=== PATIENT | female | born 1940 | race Caucasian/White ===

== ENCOUNTER 2017-07-08 07:06 | Inpatient (IN) | payer OTHER ==
[2017-07-08] MEDS ORDERED: METOCLOPRAMIDE HCL INJECTION 10 MG/2 ML VIAL IVPUSH ONE (07:49)
[2017-07-08] MEDS ORDERED: METOCLOPRAMIDE HCL INJECTION 10 MG/2 ML VIAL ONE (07:53)
--- NOTE | 2017-07-08 08:31 | PDOC ---
History of Present Illness - General Chief Complaint: Lightheaded Stated Complaint: vertigo /DIZZINESS Time Seen by Provider: 07/08/17 07:23 History Source: Patient Exam Limitations: No Limitations - History of Present Illness Initial Comments: 07/08/17 08:31 The patient is a 76-year-old female past medical history of hypertension, hyperlipidemia, prediabetes, coronary artery disease status post stents, back pain who presents to the emergency department today complaining of dizziness, vertigo and nausea for 8 days. Patient states that she usually has vertigo attacks she regularly takes meclizine for; however, she states that this has been the longest period of vertigo that she's ever had. She states that the room is spinning and is worse when she goes from a lying down to upright position. She states that she notices symptoms when she turns her head to the right. She also endorses headache, weakness, lethargy, nausea, cough and anorexia. She states that she hasn't overall been feeling well. Denies chest pain, palpitations edema, chest tightness, syncope, shortness of breath, diarrhea, vomiting, constipation, frequency, urgency and hematuria. Past History - Travel Traveled outside of the country in the last 30 days: No Close contact w/someone who was outside of country & ill: No - Past Medical History Allergies/Adverse Reactions: Allergies Allergy/AdvReac Type Severity Reaction Status Date / Time codeine [Codeine] Allergy Verified 07/08/17 07:11 Penicillins Allergy Verified 07/08/17 07:11 Anemia: No Asthma: No Cancer: No Cardiac Disorders: Yes (CORONARY ARTERY DISEASE) CVA: No COPD: No CHF: No Dementia: No Diabetes: No GI Disorders: Yes (NAUSEA,VOMITING,HX.COLON POLYP) Disorders: No HTN: Yes Hypercholesterolemia: Yes Liver Disease: No Seizures: No Thyroid Disease: No Other medical history: vertigo, arithritis - Surgical History Abdominal Surgery: No Appendectomy: Yes Cardiac Surgery: Yes (CARDIAC STENTS X2) Cholecystectomy: Yes Lung Surgery: No Neurologic Surgery: Yes (REMOVAL BLOOD CLOT) Orthopedic Surgery: No - Psycho/Social/Smoking Cessation Hx Anxiety: No Suicidal Ideation: No Smoking History: Never smoked Have you smoked in the past 12 months: No Information on smoking cessation initiated: No Hx Alcohol Use: No Drug/Substance Use Hx: No Substance Use Type: None Hx Substance Use Treatment: No Review of Systems - Review of Systems Able to Perform ROS?: Yes Is the patient limited Lithuanian proficient: No Constitutional: Yes: Loss of Appetite, Weakness. No: Chills, Fever, Malaise HEENTM: No: Ear Discharge, Tinnitus, Hearing Loss Respiratory: Yes: Cough. No: Shortness of Breath, Wheezing Cardiac (ROS): Yes: Lightheadedness. No: Chest Pain, Edema, Palpitations, Syncope, Chest Tightness ABD/GI: Yes: Nausea. No: Constipated, Vomiting Neurological: Yes: Weakness, Dizziness. No: Numbness, Paresthesia All Other Systems: Reviewed and Negative *Physical Exam - Vital Signs Last Vital Signs Temp Pulse Resp BP Pulse Ox 97.6 F 78 18 161/80 97 07/08/17 07:11 07/08/17 07:11 07/08/17 07:11 07/08/17 07:11 07/08/17 07:11 - Physical Exam Comments: 07/08/17 08:37 GENERAL: Well developed, well nourished. Awake and alert. No acute distress. HEENT: Normocephalic, atraumatic. PERRLA, EOMI. No nystagmus one sophia's maneuver. No conjunctival pallor. Sclera are non-icteric. Moist mucous membranes. Oropharynx is clear. NECK: Supple. Full ROM. No JVD. Carotid pulses 2+ and symmetric, without bruits. No thyromegaly. No lymphadenopathy. CARDIOVASCULAR: Regular rate and rhythm. No murmurs, rubs, or gallops. Distal pulses are 2+ and symmetric. PULMONARY: No evidence of respiratory distress. Lungs clear to auscultation bilaterally. No wheezing, rales or rhonchi. ABDOMINAL: Soft. Non-tender. Non-distended. No rebound or guarding. No organomegaly. Normoactive bowel sounds. MUSCULOSKELETAL Normal range of motion at all joints. No bony deformities or tenderness. No CVA tenderness. EXTREMITIES: No cyanosis. No clubbing. No edema. No calf tenderness. SKIN: Warm and dry. Normal capillary refill. No rashes. No jaundice. NEUROLOGICAL: Alert, awake, appropriate. Cranial nerves 2-12 intact. No deficits to light touch and temperature in face, upper extremities and lower extremities. No dysmetreia, dysarthrea, dyskinokineses. No motor deficits in the in face, upper extremities and lower extremities. Normoreflexic in the upper and lower extremities. Normal speech. Toes are down-going bilaterally. Gait is normal without ataxia. PSYCHIATRIC: Cooperative. Good eye contact. Appropriate mood and affect. ED Treatment Course - LABORATORY CBC & Chemistry Diagram: 07/08/17 10:20 07/08/17 08:20 Medical Decision Making - Medical Decision Making 07/08/17 08:39 The patient is a 76-year-old female past medical history of hypertension, hyperlipidemia, prediabetes, coronary artery disease status post stents, back pain who presents to the emergency department today complaining of dizziness, vertigo and nausea for 8 days. There are no neurological deficits, no dismetria , disarthria, dyskinokinesis. BP mildly above goal at 160/80, afebrile. Differential diagnosis include but are not limited to central vertigo, BPPV, infection, less likely brainstem stroke, ACS 1.CBC, CMP, PT/INR, cardiac labs, UA, UC 2.EKG, chest x-ray, head CT 3.Reglan and Benadryl 4.Re-evaluate 07/08/17 10:35 CT scan impression: Intervals status post right posterior parietal/occipital craniotomy Mild to moderate volume loss, ventricular dilation and chronic microvascular ischemic changes. No gross intracranial pathology is identified. Lab work shows a trop of 0.06. Other lab work hemolized. 2nd trop ordered for 13 :30 07/08/17 12:11 Urine shows positive Leuks and blood. CBC is unremarkable. pt. states that she feels slightly better after reglan. Will try ativan now. Sending pt. for MRI brain, MRA brain and MRA neck to look for posterior circulation stroke. Will place referral for Dr. Kelly. PCP is Dr. Javier Fields, who admits to [facility]. Will place request. *DC/Admit/Observation/Transfer Diagnosis at time of Disposition: Inability to walk, Vertigo, Dizziness UTI (urinary tract infection) Qualifiers: Urinary tract infection type: site unspecified Hematuria presence: with hematuria Qualified Code(s): N39.0 - Urinary tract infection, site not specified - Discharge Dispostion Condition at time of disposition: Stable Admit: Yes
[2017-07-08 08:53] LABS: ALBUMIN 3.1 g/dl (3.4-5.0); ANION GAP 5 (8-16); BILIRUBIN,TOTAL 0.6 mg/dL (0.2-1.0); CALCIUM 9.4 mg/dL (8.5-10.1); CO2 30 mmol/L (21-32); CREATININE 1.1 mg/dL (0.55-1.02); GLUCOSE,RANDOM 117 mg/dL (74-106); SGPT/ALT 18 U/L (12-78); TOT PROT 7.7 g/dl (6.4-8.2)
[2017-07-08 08:54] LABS: ALK PHOS 91 U/L (45-117)
[2017-07-08 08:55] LABS: SGOT/AST 23 U/L (15-37)
[2017-07-08 08:59] LABS: INR 1.08 (0.82-1.09); PROTHROMBIN TIME (PATIENT) 11.9 SEC (9.98-11.88)
[2017-07-08 09:08] LABS: URINE APPEARANCE SLCLOUDY; URINE BILIRUBIN NEGATIVE (NEGATIVE); URINE BLOOD 1+ (NEGATIVE); URINE COLOR YELLOW; URINE GLUCOSE (UA) NEGATIVE (NEGATIVE); URINE KETONE NEGATIVE (NEGATIVE); URINE NITRITE NEGATIVE (NEGATIVE); URINE PROTEIN NEGATIVE (NEGATIVE); URINE UROBILINOGEN NEGATIVE mg/dL (0.2-1.0)
[2017-07-08 09:26] LABS: URINE LEUK ESTERASE 3+ (NEGATIVE)
[2017-07-08 09:27] LABS: CPK 80 IU/L (26-192); TROPONIN I 0.06 ng/ml (0.00-0.05)
[2017-07-08 09:29] LABS: URINE HYALINE CAST 5 /lpf; URINE MUCUS FEW; URINE RBC 2 /hpf (0-3); URINE WBC 45 /hpf (3-5)
[2017-07-08 10:36] LABS: BASOPHIL 0.6 % (0-2.0); MCH 27.5 pg (25.7-33.7); MCHC 32.7 g/dl (32.0-36.0); MEAN CELL VOLUME 84.2 fl (80-96); MEAN PLT VOLUME 8.3 fl (7.5-11.1); NEUTROPHILS 61.4 % (42.8-82.8); PLATELET COUNT 276 K/MM3 (134-434); RDW 15.3 % (11.6-15.6); WHITE BLOOD COUNT 9.5 K/mm3 (4.0-10.0)
[2017-07-08] MEDS ORDERED: ASPIRIN 81 MG CHEWABLE TABLETS PO ONE ×2 (10:45→11:19)
[2017-07-08 11:04] LABS: TROPONIN I 0.07 ng/ml (0.00-0.05)
--- NOTE | 2017-07-08 11:14 | PDOC ---
*Physical Exam - Vital Signs Last Vital Signs Temp Pulse Resp BP Pulse Ox 97.6 F 78 18 161/80 97 07/08/17 07:11 07/08/17 07:11 07/08/17 07:11 07/08/17 07:11 07/08/17 07:11 ED Treatment Course - LABORATORY CBC & Chemistry Diagram: 07/09/17 05:35 07/09/17 05:35 - ADDITIONAL ORDERS Additional order review: Laboratory Results 07/08/17 07/08/17 07/08/17 08:55 08:20 08:20 INR Sodium 139 Potassium 4.8 Chloride 104 Carbon Dioxide 30 Anion Gap 5 L BUN 16 Creatinine 1.1 H D Creat Clearance w eGFR 48.04 Random Glucose 117 H Calcium 9.4 Total Bilirubin 0.6 D AST 23 D ALT 18 Alkaline Phosphatase 91 Creatine Kinase Cancelled 80 Troponin I Cancelled 0.06 H Total Protein 7.7 Albumin 3.1 L Urine Color Yellow Urine Appearance Slcloudy Urine pH 5.0 Urine Protein Negative Urine Glucose (UA) Negative Urine Ketones Negative Urine Blood 1+ H Urine Nitrite Negative Urine Bilirubin Negative Urine Urobilinogen Negative Ur Leukocyte Esterase 3+ H D Urine RBC 2 Urine WBC 45 Ur Epithelial Cells Few Hyaline Casts 5 Urine Mucus Few 07/08/17 08:20 INR 1.08 Sodium Potassium Chloride Carbon Dioxide Anion Gap BUN Creatinine Creat Clearance w eGFR Random Glucose Calcium Total Bilirubin AST ALT Alkaline Phosphatase Creatine Kinase Troponin I Total Protein Albumin Urine Color Urine Appearance Urine pH Urine Protein Urine Glucose (UA) Urine Ketones Urine Blood Urine Nitrite Urine Bilirubin Urine Urobilinogen Ur Leukocyte Esterase Urine RBC Urine WBC Ur Epithelial Cells Hyaline Casts Urine Mucus 07/08/17 07/08/17 10:20 08:20 RBC 4.71 Cancelled MCV 84.2 Cancelled MCHC 32.7 Cancelled RDW 15.3 D Cancelled MPV 8.3 Cancelled Neutrophils % 61.4 Cancelled Lymphocytes % 26.9 Cancelled Monocytes % 7.1 Cancelled Eosinophils % 4.0 Cancelled Basophils % 0.6 Cancelled - Medications Given in the ED: ED Medications Discontinued Medications Generic Name Dose Route Start Last Admin Trade Name Freq PRN Reason Stop Dose Admin Diphenhydramine HCl 12.5 mg 07/08/17 07:53 07/08/17 09:46 Benadryl Injection - IVPUSH 07/08/17 07:54 12.5 mg ONCE ONE Administration Metoclopramide HCl 10 mg 07/08/17 07:49 07/08/17 08:00 Reglan Injection - IVPUSH 07/08/17 07:50 10 mg ONCE ONE Administration Medical Decision Making - Medical Decision Making 07/08/17 11:12 I have seen and examined this patient with JIM Whiting. I agree with her history , assessment and plan *DC/Admit/Observation/Transfer Diagnosis at time of Disposition: Inability to walk, Vertigo, Dizziness UTI (urinary tract infection) Qualifiers: Urinary tract infection type: site unspecified Hematuria presence: with hematuria Qualified Code(s): N39.0 - Urinary tract infection, site not specified - Discharge Dispostion Disposition: HOME Condition at time of disposition: Stable - Prescriptions - Attestations Physician Attestion: 07/09/17 20:53 I, Dr. Albert Carrington MD, attest that this document has been prepared under my direction and personally reviewed by me in its entirety. I further attest, that it accurately reflects all work, treatment, procedures and medical decision -making performed by me.
[2017-07-08] MEDS ORDERED: ASPIRIN 81 MG CHEWABLE TABLETS ONE (11:37)
--- NOTE | 2017-07-08 14:05 | CONSULT ---
Consult - text type - Consultation Consultation Note: Neurology History of Present Illness The patient is a 76-year-old female past medical history of hypertension, hyperlipidemia, prediabetes, coronary artery disease status post stents, back pain who presents to the emergency department today complaining of dizziness, vertigo and nausea for 8 days without significant relief. Patient states that she usually has vertigo attacks she regularly takes meclizine for; however, she states that this has been the longest period of vertigo that she's ever had. She states that the room is spinning and is worse when she goes from a lying down to upright position. She states that she notices symptoms when she turns her head to the right. She also endorses headache, weakness, lethargy, nausea, cough and anorexia. She states that she hasn't overall been feeling well. She completed CT head in the ER and was negative. The patient was not able to ambulate and was ataxic trying to get out of bed. She was given Meclezine as well as low dose Ativan 0.5mg with minimal relief. Denies chest pain, palpitations edema, chest tightness, syncope, shortness of breath, diarrhea, vomiting, constipation, frequency, urgency and hematuria. Home Medication List Medication Instructions Recorded Confirmed Type Atorvastatin Ca [Lipitor] 40 mg PO HS 07/08/17 07/08/17 History Losartan Potassium [Cozaar -] 50 mg PO DAILY 07/08/17 07/08/17 History Metoprolol Succinate [Toprol Xl] 50 mg PO DAILY 07/08/17 07/08/17 History Omeprazole 40 mg PO ASDIR 07/08/17 07/08/17 History Prednisone [Deltasone -] 1 mg PO DAILY 07/08/17 07/08/17 History Risedronate Sodium [Actonel 150 mg PO Q30D 07/08/17 07/08/17 History (Monthly)] Past History - Travel Traveled outside of the country in the last 30 days: No Close contact w/someone who was outside of country & ill: No - Past Medical History Allergies/Adverse Reactions: Allergies Allergy/AdvReac Type Severity Reaction Status Date / Time codeine [Codeine] Allergy Verified 07/08/17 07:11 Penicillins Allergy Verified 07/08/17 07:11 Anemia: No Asthma: No Cancer: No Cardiac Disorders: Yes (CORONARY ARTERY DISEASE) CVA: No COPD: No CHF: No Dementia: No Diabetes: No GI Disorders: Yes (NAUSEA,VOMITING,HX.COLON POLYP) Disorders: No HTN: Yes Hypercholesterolemia: Yes Liver Disease: No Seizures: No Thyroid Disease: No Other medical history: vertigo, arithritis - Surgical History Abdominal Surgery: No Appendectomy: Yes Cardiac Surgery: Yes (CARDIAC STENTS X2) Cholecystectomy: Yes Lung Surgery: No Neurologic Surgery: Yes (REMOVAL BLOOD CLOT) Orthopedic Surgery: No - Psycho/Social/Smoking Cessation Hx Anxiety: No Suicidal Ideation: No Smoking History: Never smoked Have you smoked in the past 12 months: No Information on smoking cessation initiated: No Hx Alcohol Use: No Drug/Substance Use Hx: No Substance Use Type: None Hx Substance Use Treatment: No Review of Systems - Review of Systems Able to Perform ROS?: Yes Is the patient limited Khmer proficient: No Constitutional: Yes: Loss of Appetite, Weakness. No: Chills, Fever, Malaise HEENTM: No: Ear Discharge, Tinnitus, Hearing Loss Respiratory: Yes: Cough. No: Shortness of Breath, Wheezing Cardiac (ROS): Yes: Lightheadedness. No: Chest Pain, Edema, Palpitations, Syncope, Chest Tightness ABD/GI: Yes: Nausea. No: Constipated, Vomiting Neurological: Yes: Weakness, Dizziness. No: Numbness, Paresthesia All Other Systems: Reviewed and Negative *Physical Exam - Vital Signs Last Vital Signs Temp Pulse Resp BP Pulse Ox 97.6 F 78 18 161/80 97 07/08/17 07:11 07/08/17 07:11 07/08/17 07:11 07/08/17 07:11 07/08/17 07:11 GENERAL: Well developed, well nourished. Awake and alert. No acute distress. HEENT: Normocephalic, atraumatic. PERRLA, EOMI. No nystagmus one sophia's maneuver. No conjunctival pallor. Sclera are non-icteric. Moist mucous membranes. Oropharynx is clear. NECK: Supple. Full ROM. No JVD. Carotid pulses 2+ and symmetric, without bruits. No thyromegaly. No lymphadenopathy. CARDIOVASCULAR: Regular rate and rhythm. No murmurs, rubs, or gallops. Distal pulses are 2+ and symmetric. PULMONARY: No evidence of respiratory distress. Lungs clear to auscultation bilaterally. No wheezing, rales or rhonchi. ABDOMINAL: Soft. Non-tender. Non-distended. No rebound or guarding. No organomegaly. Normoactive bowel sounds. MUSCULOSKELETAL Normal range of motion at all joints. No bony deformities or tenderness. No CVA tenderness. EXTREMITIES: No cyanosis. No clubbing. No edema. No calf tenderness. SKIN: Warm and dry. Normal capillary refill. No rashes. No jaundice. NEUROLOGICAL: Alert, awake, appropriate. Cranial nerves 2-12 intact. No deficits to light touch and temperature in face, upper extremities and lower extremities. No dysmetreia, dysarthrea, dyskinokineses. No motor deficits in the in face, upper extremities and lower extremities. Normoreflexic in the upper and lower extremities. Normal speech. Unable to ambulate, ataxia on standing. PSYCHIATRIC: Cooperative. Good eye contact. Appropriate mood and affect. CBCD WBC 9.5 K/mm3 (4.0-10.0) D 07/08/17 10:20 RBC 4.71 M/mm3 (3.60-5.2) 07/08/17 10:20 Hgb 13.0 GM/dL (10.7-15.3) 07/08/17 10:20 Hct 39.6 % (32.4-45.2) 07/08/17 10:20 MCV 84.2 fl (80-96) 07/08/17 10:20 MCHC 32.7 g/dl (32.0-36.0) 07/08/17 10:20 RDW 15.3 % (11.6-15.6) D 07/08/17 10:20 Plt Count 276 K/MM3 (134-434) 07/08/17 10:20 MPV 8.3 fl (7.5-11.1) 07/08/17 10:20 CMP Sodium 139 mmol/L (136-145) 07/08/17 08:20 Potassium 4.8 mmol/L (3.5-5.1) 07/08/17 08:20 Chloride 104 mmol/L (98-107) 07/08/17 08:20 Carbon Dioxide 30 mmol/L (21-32) 07/08/17 08:20 Anion Gap 5 (8-16) L 07/08/17 08:20 BUN 16 mg/dL (7-18) 07/08/17 08:20 Creatinine 1.1 mg/dL (0.55-1.02) H D 07/08/17 08:20 Creat Clearance w eGFR 48.04 (>60) 07/08/17 08:20 Calcium 9.4 mg/dL (8.5-10.1) 07/08/17 08:20 Total Bilirubin 0.6 mg/dL (0.2-1.0) D 07/08/17 08:20 AST 23 U/L (15-37) D 07/08/17 08:20 ALT 18 U/L (12-78) 07/08/17 08:20 Alkaline Phosphatase 91 U/L (45-117) 07/08/17 08:20 Total Protein 7.7 g/dl (6.4-8.2) 07/08/17 08:20 Albumin 3.1 g/dl (3.4-5.0) L 07/08/17 08:20 Medical Decision Making 76-year-old female past medical history of hypertension, hyperlipidemia, prediabetes, coronary artery disease status post stents, back pain who presents to the emergency department today complaining of dizziness, vertigo and nausea for 8 days without significant relief. The patient was not able to ambulate and was ataxic trying to get out of bed with fall risk and therefore is getting admitted. She was given Meclezine as well as low dose Ativan 0.5mg with minimal relief. CT head reviewed and may be 2/2 BPPV but since symptoms are prolonged and persistent without relief, will need to rule our CVA of brainstem. Central cause cannot be evaluated on CT, MRI brain needed for posterior fossa which is not adequately seen on CT. MRA brain also recommended. NO sudden head movements. Can give Meclezine as needed. Can give low dose 2mg Diazepam as well , but monitor for sedation. COntinue BP control, Metoprolol 50mg. COntinue Atorvastatin for HLD, LDL goal < 100. Continue hydration. Physcial therapy may also be beneficial.
--- NOTE | 2017-07-08 14:27 | HP ---
CHIEF COMPLAINT: room spinning and dizziness for past 8 days PCP: HISTORY OF PRESENT ILLNESS: 76 y/o F with PMH HTN, HLD, prediabetes, CAD s/p stents (x2 done at [facility]-10 yrs ago), and back pain, vertigo (dx 10 yrs ago by health promotion specialist), who presented to ED for vertigo for the past 8 days. As per pt, vertigo began 10 yrs ago. It was diagnosed by a health promotion specialist after she had an MRI done- after she got up, she immediately felt dizzy and like the room was spinning. Ever since, she has sudden two-day episodes of extreme dizziness that are so severe that she spends these days sleeping. It is worse when she gets up and sits down. Pt states that episodes are also worse when she is stressed or dehydrated. She takes meclizine daily. Pt has also had nausea with emesis, tension headaches, and sensitivity to light and loud sounds during this time. Denies flu-like symptoms, chest pain, dysuria, ear pain, diarrhea. She has also had family stress recently, starting 8 days ago. 10 yrs ago. ER course was notable for: (1)Aspirin 162 mg once, benadryl 12.5 mg IVP once, metoclopramide 10mg IVP once (2) Head CT: s/p post partietal/occip craniotomy, mild vol loss, vent dilation, microvasc ischemic changes (3) EKG: nonspecific T wave abnormality Recent Travel: none PAST MEDICAL HISTORY: HTN, HLD, prediabetes, CAD s/p stents, back pain PAST SURGICAL HISTORY: appendectomy, cholecystectomy, cardiac stents x2, craniotomy (7 yrs ago), tonsillectomy Social History: Smoking: denies Alcohol: socially Drugs: denies Family History: sister- CAD Allergies codeine [Codeine] Allergy (Verified 07/08/17 07:11) - hives Penicillins Allergy (Verified 07/08/17 07:11) - hives HOME MEDICATIONS: Home Medications Medication Instructions Recorded Atorvastatin Ca [Lipitor] 40 mg PO HS 07/08/17 Losartan Potassium [Cozaar -] 50 mg PO DAILY 07/08/17 Metoprolol Succinate [Toprol Xl] 50 mg PO DAILY 07/08/17 Omeprazole 40 mg PO ASDIR 07/08/17 Prednisone [Deltasone -] 1 mg PO DAILY 07/08/17 Risedronate Sodium [Actonel 150 mg PO Q30D 07/08/17 (Monthly)] REVIEW OF SYSTEMS CONSTITUTIONAL: Absent: fever, chills, diaphoresis, generalized weakness, malaise, loss of appetite, weight change HEENT: Absent: rhinorrhea, nasal congestion, throat pain, throat swelling, difficulty swallowing, mouth swelling, ear pain, eye pain, visual changes CARDIOVASCULAR: Absent: chest pain, syncope, palpitations, irregular heart rate, lightheadedness , peripheral edema RESPIRATORY: Absent: cough, shortness of breath, dyspnea with exertion, orthopnea, wheezing, stridor, hemoptysis GASTROINTESTINAL: Absent: abdominal pain, abdominal distension, nausea, vomiting, diarrhea, constipation, melena, hematochezia GENITOURINARY: Absent: dysuria, frequency, urgency, hesitancy, hematuria, flank pain, genital pain MUSCULOSKELETAL: +back pain Absent: myalgia, arthralgia, joint swelling, back pain, neck pain SKIN: Absent: rash, itching, pallor HEMATOLOGIC/IMMUNOLOGIC: Absent: easy bleeding, easy bruising, lymphadenopathy, frequent infections ENDOCRINE: Absent: unexplained weight gain, unexplained weight loss, heat intolerance, cold intolerance NEUROLOGIC: +dizziness, +headache Absent: headache, focal weakness or paresthesias, dizziness, unsteady gait, seizure, mental status changes, bladder or bowel incontinence PSYCHIATRIC: Absent: anxiety, depression, suicidal or homicidal ideation, hallucinations. PHYSICAL EXAMINATION GENERAL: Awake, alert, and fully oriented, in mild distress HEAD: Normal with no signs of trauma. EYES: Pupils equal, round and reactive to light, extraocular movements intact, sclera anicteric, conjunctiva clear. EARS, NOSE, THROAT: oropharynx clear without exudates. Moist mucous membranes. NECK: Normal range of motion, supple without lymphadenopathy, JVD, or masses. LUNGS: Breath sounds equal, clear to auscultation bilaterally. No wheezes, and no crackles. No accessory muscle use. HEART: Regular rate and rhythm, normal S1 and S2 without murmur, rub or gallop. ABDOMEN: Soft, nontender, not distended, normoactive bowel sounds, no guarding, no rebound, no masses. MUSCULOSKELETAL: limited range of motion in lower extremities d/t arthritis. No bony deformities or tenderness. No CVA tenderness. UPPER EXTREMITIES: 2+ pulses, warm, well-perfused. No cyanosis. No clubbing. No peripheral edema. Motor strength 5/5. LOWER EXTREMITIES: 2+ pulses, warm, well-perfused. No calf tenderness. No peripheral edema. 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 Normal speech. Cerebellar function intact. No dysmetria, no dysdiadokinesia. ASSESSMENT/PLAN: 76 y/o F with PMH HTN, HLD, prediabetes, CAD s/p stents (x2 done at [facility]-10 yrs ago), and back pain, vertigo (dx 10 yrs ago by health promotion specialist), who presented to ED for vertigo for the past 8 days. Pt admitted for vertigo. #Vertigo r/o CVA -since symptoms have persisted, and no relief with meclizine, rule out brainstem CVA -F/u MRI/MRA brain -Meclizine 25mg PO TID PRN -May add 2 mg diazepam if needed, monitor for sedation -Neurology has been consulted -Physical therapy #UTI -Leukocyte esterase 3+, Blood1+, 45 WBCs -afebrile, without leukocytosis, denies suprapubic tenderness -levaquin 750mg PO daily (Today is Day1) #HTN-uncontrolled -Possibly d/t discomfort and headache pain -Last reading 161/80 -Continue home med of losartan 50 mg PO daily -Continue home med of Toprol XL 50 mg PO daily -Will monitor and adjust if still elevated #HLD -Order lipid panel, LDL goal <100 -Continue Lipitor 40 mg PO HS #DM -F/u HbA1c -BGM, ISS #CAD #DVT prophylaxis -SCD's -Heparin 5000 SQ BID F/E/N -IV NS 100 mls/hr -Monitor electrolytes -Regular diet Visit type - Emergency Visit Emergency Visit: Yes ED Registration Date: 07/08/17 Care time: The patient presented to the Emergency Department on the above date and was hospitalized for further evaluation of their emergent condition. - New Patient This patient is new to me today: Yes Date on this admission: 07/08/17 - Critical Care Critical Care patient: No
--- NOTE | 2017-07-08 15:05 | EKG ---
Test Reason : Blood Pressure : / mmHG Vent. Rate : 073 BPM Atrial Rate : 073 BPM P-R Int : 144 ms QRS Dur : 064 ms QT Int : 400 ms P-R-T Axes : 058 012 006 degrees QTc Int : 440 ms NORMAL SINUS RHYTHM LOW VOLTAGE QRS NONSPECIFIC T WAVE ABNORMALITY ABNORMAL ECG WHEN COMPARED WITH ECG OF 04-JUL-2014 13:49, NONSPECIFIC T WAVE ABNORMALITY NOW EVIDENT IN INFERIOR LEADS NONSPECIFIC T WAVE ABNORMALITY NOW EVIDENT IN ANTEROLATERAL LEADS Confirmed by DON CAVAZOS MD ([id number]) on 07/08/2017 3:05:01 PM Referred By: Confirmed By:DON CAVAZOS MD
[2017-07-08 15:19] LABS: TROPONIN I 0.05 ng/ml (0.00-0.05)
[2017-07-08] MEDS ORDERED: MECLIZINE HCL 25 MG TABLET (FP) PO PRN (15:53)
[2017-07-08] MEDS ORDERED: LOSARTAN POTASSIUM 50 MG TABLET (FP) PO SCH (16:00)
[2017-07-08] MEDS: INSULIN SLIDING SCALE (NOVOLOG) 1 VIAL SQ SCH ×2 (17:02→21:43)
[2017-07-08] MEDS: METOPROLOL SUCCINATE 50 MG TAB.SR.24H (FP) PO SCH (17:16)
--- NOTE | 2017-07-08 18:00 | PN ---
Teaching Attending Note Name of Resident: Beatris Duran ATTENDING PHYSICIAN STATEMENT I saw and evaluated the patient. I reviewed the resident's note and discussed the case with the resident. I agree with the resident's findings and plan as documented. SUBJECTIVE:76 y/o F with PMH HTN, HLD, prediabetes, CAD s/p stents (x2 done at [facility]-10 yrs ago), and back pain, vertigo (dx 10 yrs ago by deputy chief magistrate), who presented to ED for vertigo for the past 8 days. room spinning sensation which has persisted for 8 days. assoc with emesis and RODRIGUEZ and photosensitivity. normal episodes usually last 2 days then self remit. no recent medication changes. no CP, SOB, fever, chills, weakness. OBJECTIVE: Last Vital Signs Temp Pulse Resp BP Pulse Ox 98 F 78 18 141/70 95 07/08/17 15:44 07/08/17 15:44 07/08/17 15:44 07/08/17 15:44 07/08/17 13:14 pt was in MRI and was not able to evaluate ASSESSMENT AND PLAN: 76 y/o F with PMH HTN, HLD, prediabetes, CAD s/p stents presenting with persistent vertiginous symptoms 1. Vertigo- concern for vestibular CVA. admit to stroke unit. for continuous cardiac monitoring. initial CT head is negative. MRI/MRA ordered to further evaluate. evaluated by neuro. diazepam 2mg prn, meclizine prn. unable to obtain orthostatics due to pt being too symptomatic. 2. +UTI- will start levaquin due to PCN allergy (anaphylaxis). f/u Cx 3. MAX- likely dehydration. IVF. avoid nephrotoxic agents. repeat 4. Troponin leak- hypertensive when admitted. peaked at 0.07 and now normalized. no reports of chest pain. tele monitoring 5. HTN- uncontrolled when first arrived. likely due to not taking medications. received home meds and now hypotensive. will hold medications for now. monitor 6. DM- hold oral agents. ISS, BGM 7. DVT ppx- hep sq
[2017-07-08 19:01] VITALS: BMI 39.6
[2017-07-08] MEDS: SODIUM CHLORIDE 1,000 ML IV SCH (19:15)
[2017-07-08] MEDS: HEPARIN NA (PORCINE) 5,000 UNITS/ML 1ML VIAL SQ SCH (21:25)
[2017-07-08] MEDS ORDERED: ATORVASTATIN CA 40 MG TABLET (FP) PO SCH (22:00)
[2017-07-09] MEDS: INSULIN SLIDING SCALE (NOVOLOG) 1 VIAL SQ SCH ×3 (06:01→17:00)
[2017-07-09 08:10] LABS: MCH 27.1 pg (25.7-33.7); MEAN CELL VOLUME 84.6 fl (80-96); MEAN PLT VOLUME 8.2 fl (7.5-11.1); PLATELET COUNT 257 K/MM3 (134-434); RDW 15.4 % (11.6-15.6); WHITE BLOOD COUNT 9.1 K/mm3 (4.0-10.0)
--- NOTE | 2017-07-09 08:12 | PN ---
Teaching Attending Note Name of Resident: Beatris Duran ATTENDING PHYSICIAN STATEMENT I saw and evaluated the patient. I reviewed the resident's note and discussed the case with the resident. I agree with the resident's findings and plan as documented. SUBJECTIVE: No specific complaints OBJECTIVE: Vitals noted ASSESSMENT AND PLAN: Appreciate health analytics consultant input MRI/A brain and neck noted Will obtain Carotic US to better evaluate proximal right ICA Continue Meclizine Possible discharge later today See resident note for full details
[2017-07-09 09:05] LABS: ANION GAP 10 (8-16); CALCIUM 8.6 mg/dL (8.5-10.1); CHOLESTEROL 132 mg/dL (50-200); CO2 24 mmol/L (21-32); GLUCOSE,RANDOM 118 mg/dL (74-106); LDL CHOLESTEROL (ONLY SJRH) 66 mg/dL (5-100)
[2017-07-09] MEDS ORDERED: PT OWN MED DRAWER 7, Y5N ONE (09:10)
[2017-07-09] MEDS: METOPROLOL SUCCINATE 50 MG TAB.SR.24H (FP) PO SCH (09:44)
[2017-07-09] MEDS: HEPARIN NA (PORCINE) 5,000 UNITS/ML 1ML VIAL SQ SCH (09:45)
[2017-07-09] MEDS ORDERED: LEVOFLOXACIN 750 MG TABLET PO SCH (10:00)
--- NOTE | 2017-07-09 10:17 | PN ---
Progress Note (short form) - Note Progress Note: Neurology History of Present Illness The patient is a 76-year-old female past medical history of hypertension, hyperlipidemia, prediabetes, coronary artery disease status post stents, back pain who presents to the emergency department complaining of dizziness, vertigo and nausea for 8 days without significant relief. Patient stateed that she usually has vertigo attacks she regularly takes meclizine for; however, she states that this has been the longest period of vertigo that she's ever had. She states that the room is spinning and is worse when she goes from a lying down to upright position. She states that she notices symptoms when she turns her head to the right. She also endorses headache, weakness, lethargy, nausea, cough and anorexia. She states that she hasn't overall been feeling well. She completed CT head in the ER and was negative. The patient was not able to ambulate and was ataxic trying to get out of bed. She was given Meclezine as well as low dose Ativan 0.5mg with minimal relief. She completed MRI brain which I reviewed and did not show acute changes. 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 MRA reviewed and and mild to moderate R proximal ICA stenosis noted, CD ordered and recommended. SHe is on Statin and blood pressure medication for CVA prevention. Active Medications Atorvastatin Calcium (Lipitor -) 40 mg PO HS [facility] Last Admin: 07/08/17 21:25 Dose: 40 mg Heparin Sodium (Porcine) (Heparin -) 5,000 unit SQ BID TILA Last Admin: 07/09/17 09:45 Dose: 5,000 unit Sodium Chloride (Normal Saline -) 1,000 mls @ 100 mls/hr IV ASDIR TILA Last Admin: 07/08/17 19:15 Dose: 100 mls/hr Insulin Aspart (Novolog Vial Sliding Scale -) 1 vial SQ ACHS TILA PRN Reason: Protocol Last Admin: 07/09/17 06:01 Dose: Not Given Levofloxacin (Levaquin) 750 mg PO DAILY [facility] Last Admin: 07/09/17 09:45 Dose: 750 mg Meclizine HCl (Antivert -) 25 mg PO TID PRN PRN Reason: VERTIGO Last Admin: 07/09/17 09:51 Dose: 25 mg Metoprolol Succinate (Toprol Xl -) 50 mg PO DAILY TIL[facility] Last Admin: 07/09/17 09:44 Dose: 50 mg *Physical Exam Vital Signs Temperature 98.2 F 07/09/17 08:10 Pulse Rate 74 07/09/17 08:10 Respiratory Rate 18 07/09/17 05:45 Blood Pressure 140/50 07/09/17 08:10 O2 Sat by Pulse Oximetry (%) 93 L 07/08/17 16:00 GENERAL: Well developed, well nourished. Awake and alert. No acute distress. HEENT: Normocephalic, atraumatic. PERRLA, EOMI. No nystagmus one sophia's maneuver. No conjunctival pallor. Sclera are non-icteric. Moist mucous membranes. Oropharynx is clear. NECK: Supple. Full ROM. No JVD. Carotid pulses 2+ and symmetric, without bruits. No thyromegaly. No lymphadenopathy. CARDIOVASCULAR: Regular rate and rhythm. No murmurs, rubs, or gallops. Distal pulses are 2+ and symmetric. PULMONARY: No evidence of respiratory distress. Lungs clear to auscultation bilaterally. No wheezing, rales or rhonchi. ABDOMINAL: Soft. Non-tender. Non-distended. No rebound or guarding. No organomegaly. Normoactive bowel sounds. MUSCULOSKELETAL Normal range of motion at all joints. No bony deformities or tenderness. No CVA tenderness. EXTREMITIES: No cyanosis. No clubbing. No edema. No calf tenderness. SKIN: Warm and dry. Normal capillary refill. No rashes. No jaundice. NEUROLOGICAL: Alert, awake, appropriate. Cranial nerves 2-12 intact. No deficits to light touch and temperature in face, upper extremities and lower extremities. No dysmetreia, dysarthrea, dyskinokineses. No motor deficits in the in face, upper extremities and lower extremities. Normoreflexic in the upper and lower extremities. Normal speech. Unable to ambulate, ataxia on standing. PSYCHIATRIC: Cooperative. Good eye contact. Appropriate mood and affect. CBCD WBC 9.1 K/mm3 (4.0-10.0) 07/09/17 05:35 RBC 4.62 M/mm3 (3.60-5.2) 07/09/17 05:35 Hgb 12.5 GM/dL (10.7-15.3) 07/09/17 05:35 Hct 39.1 % (32.4-45.2) 07/09/17 05:35 MCV 84.6 fl (80-96) 07/09/17 05:35 MCHC 32.0 g/dl (32.0-36.0) 07/09/17 05:35 RDW 15.4 % (11.6-15.6) 07/09/17 05:35 Plt Count 257 K/MM3 (134-434) 07/09/17 05:35 MPV 8.2 fl (7.5-11.1) 07/09/17 05:35 CMP Sodium 141 mmol/L (136-145) 07/09/17 05:35 Potassium 4.3 mmol/L (3.5-5.1) 07/09/17 05:35 Chloride 107 mmol/L (98-107) 07/09/17 05:35 Carbon Dioxide 24 mmol/L (21-32) 07/09/17 05:35 Anion Gap 10 (8-16) 07/09/17 05:35 BUN 13 mg/dL (7-18) 07/09/17 05:35 Creatinine 1.0 mg/dL (0.55-1.02) 07/09/17 05:35 Creat Clearance w eGFR 48.04 (>60) 07/08/17 08:20 Calcium 8.6 mg/dL (8.5-10.1) 07/09/17 05:35 Total Bilirubin 0.6 mg/dL (0.2-1.0) D 07/08/17 08:20 AST 23 U/L (15-37) D 07/08/17 08:20 ALT 18 U/L (12-78) 07/08/17 08:20 Alkaline Phosphatase 91 U/L (45-117) 07/08/17 08:20 Total Protein 7.7 g/dl (6.4-8.2) 07/08/17 08:20 Albumin 3.1 g/dl (3.4-5.0) L 07/08/17 08:20 Medical Decision Making 76-year-old female past medical history of hypertension, hyperlipidemia, prediabetes, coronary artery disease status post stents, back pain who presents to the emergency department today complaining of dizziness, vertigo and nausea for 8 days without significant relief. The patient was not able to ambulate and was ataxic trying to get out of bed with fall risk and therefore is getting admitted. She was given Meclezine as well as low dose Ativan 0.5mg with minimal relief. CT head reviewed and may be 2/2 BPPV but since symptoms are prolonged and persistent without relief, will need to rule our CVA of brainstem. MRI brain reviewed and discussed as above MRA brain also reviewed, CD would be of benefit to evaluate ICA stenosis. Vascular evaluation if more than just mild-moderate stenosis. NO sudden head movements. Can give Meclezine as needed. Can give low dose 2mg Diazepam as well, but monitor for sedation. COntinue BP control, Metoprolol 50mg. Cerebellar CVA often times 2/2 poorly controlled HTN. COntinue Atorvastatin for HLD, LDL goal < 100. Continue hydration. Considere ASA 81/anitplatelet for CVA prevention if no contraindications. Outpatient follow up as patient appears improved
[2017-07-09] MEDS ORDERED: ASPIRIN 81 MG CHEWABLE TABLETS PO SCH (15:15)
[2017-07-09 15:34] VITALS: BP 155/73; PULSE 83; TEMP 97.9
[2017-07-09] MEDS: SODIUM CHLORIDE 1,000 ML IV SCH (16:22)
--- NOTE | 2017-07-09 16:29 | DS ---
Physical Exam: SUBJECTIVE: Patient seen and examined at bedside today. Pt states that she is feeling much better and no longer feels as if room is spinning. Denies headache. OBJECTIVE: Vital Signs Period Temp Pulse Resp BP Sys/Ramirez Pulse Ox Last 24 Hr 97.9 F-98.9 F 66-83 16-20 91-179/50-74 PHYSICAL EXAM GENERAL: The patient is awake, alert, and fully oriented, in no acute distress. HEAD: Normal with no signs of trauma. EYES: PERRL, extraocular movements intact, sclera anicteric, conjunctiva clear. ENT: Ears normal, nares patent, oropharynx clear without exudates, moist mucous membranes. NECK: Trachea midline, full range of motion, supple. LUNGS: Breath sounds equal, clear to auscultation bilaterally, no wheezes, no crackles, no accessory muscle use. HEART: Regular rate and rhythm, S1, S2 without murmur, rub or gallop. ABDOMEN: Soft, nontender, nondistended, normoactive bowel sounds, no guarding, no rebound, no hepatosplenomegaly, no masses. EXTREMITIES: 2+ posterior tibial pulses, warm, well-perfused, no edema. NEUROLOGICAL: Cranial nerves II through XII grossly intact. Cerebellar function WNL. LABS Laboratory Tests 07/08/17 07/08/17 07/08/17 08:20 08:20 08:55 WBC Cancelled RBC Cancelled Hgb Hct Cancelled RDW Cancelled Plt Count Sodium 139 Potassium 4.8 Chloride 104 Carbon Dioxide 30 Anion Gap BUN 16 Creatinine 1.1 H D POC Glucometer Random Glucose 117 H Hemoglobin A1c % Troponin I Albumin 3.1 L Triglycerides Cholesterol Total LDL Cholesterol HDL Cholesterol Urine Color Yellow Urine Appearance Slcloudy Urine pH 5.0 Urine Blood 1+ H Ur Leukocyte Esterase 3+ H D Urine WBC 45 07/08/17 07/08/17 07/08/17 14:13 16:15 16:53 WBC RBC Hgb Hct RDW Plt Count Sodium Potassium Chloride Carbon Dioxide Anion Gap BUN Creatinine POC Glucometer 132 Random Glucose Hemoglobin A1c % Troponin I 0.05 0.03 Albumin Triglycerides Cholesterol Total LDL Cholesterol HDL Cholesterol Urine Color Urine Appearance Urine pH Urine Blood Ur Leukocyte Esterase Urine WBC 07/08/17 07/09/17 07/09/17 21:37 05:35 05:35 WBC RBC Hgb 12.5 Hct 39.1 RDW Plt Count 257 Sodium 141 Potassium 4.3 Chloride 107 Carbon Dioxide 24 Anion Gap 10 BUN 13 Creatinine POC Glucometer 109 Random Glucose 118 H Hemoglobin A1c % Troponin I Albumin Triglycerides 160 Cholesterol 132 Total LDL Cholesterol 66 HDL Cholesterol 44 Urine Color Urine Appearance Urine pH Urine Blood Ur Leukocyte Esterase Urine WBC 07/09/17 07/09/17 07/09/17 05:35 06:00 12:17 WBC RBC Hgb Hct RDW Plt Count Sodium Potassium Chloride Carbon Dioxide Anion Gap BUN Creatinine POC Glucometer 115 116 Random Glucose Hemoglobin A1c % 6.9 H Troponin I Albumin Triglycerides Cholesterol Total LDL Cholesterol HDL Cholesterol Urine Color Urine Appearance Urine pH Urine Blood Ur Leukocyte Esterase Urine WBC IMAGING 07/08/17: CXR: no evidence of acute pulmonary disease 07/08/17: Head CT: no gross acute intracranial pathology. Mild to moderate volume loss, ventricular dilation and chronic microvascular ischemic changes. 07/08/17: Brain MRI: no acute infarct identified. Two very small chronic R cerebellar infarcts noted at least one of which was present on a 2009 CT exam. Minimal to mild periventricular and subcortical chronic microvascular changes are seen. 07/08/17: Brain MRI with MRA: focal stenosis mild to moderate at origin of R internal carotid artery 07/09/17: Carotid doppler study: moderate sized plaques at R common carotid bifurcation and bulb 50-69% stenosis, thickening and plaques at L common carotid without stenosis HOSPITAL COURSE: Date of Admission:07/08/17 Date of Discharge: 07/09/17 Admit diagnosis: dizziness, vertigo Pre-admission course 76 y/o F with PMH HTN, HLD, prediabetes, CAD s/p stents (x2 done at [facility]-10 yrs ago), and back pain, vertigo (dx 10 yrs ago by pediatric psychiatrist), who presented to ED for vertigo for the past 8 days. As per pt, vertigo began 10 yrs ago. It was diagnosed by a pediatric psychiatrist after she had an MRI done- after she got up, she immediately felt dizzy and like the room was spinning. Ever since, she has sudden two-day episodes of extreme dizziness that are so severe that she spends these days sleeping. It is worse when she gets up and sits down. Pt states that episodes are also worse when she is stressed or dehydrated. She takes meclizine daily. Pt has also had nausea with emesis, tension headaches, and sensitivity to light and loud sounds during this time. Denies flu-like symptoms, chest pain, dysuria, ear pain, diarrhea. She has also had family stress recently, starting 8 days ago. 10 yrs ago. ER course was notable for: (1)Aspirin 162 mg once, benadryl 12.5 mg IVP once, metoclopramide 10mg IVP once (2) Head CT: s/p post partietal/occip craniotomy, mild vol loss, vent dilation, microvasc ischemic changes (3) EKG: nonspecific T wave abnormality Hospital course With pt's symptoms, CVA workup was done to r/o stroke. Her brain MRI revealed two very small chronic R cerebellar infarcts, while her carotid doppler study showed moderate sized plaques at R common carotid bifurcation and bulb with 50- 69% stenosis and thickening and plaques at L common carotid without stenosis. Pt was seen by neurology and will follow up in 1 week, as her symptoms improved. In the meanwhile, she has been started on aspirin 81mg prophylactically and is continuing with lipitor 40mg HS. During her time on the floor, pt's urine was also suggestive of UTI as leuk esterase 3+, 1+ blood, 45 WBCs were present on UA. Pt was started on Levaquin 750mg PO daily (completed 2 day course in hospital) and will continue for 3 more days upon discharge. Pt's dizziness subsided with this treatment as well as symptomatic meclizine treatment (which pt had been on previously, at home) for her vertigo. Minutes to complete discharge: 32 Discharge Summary Reason For Visit: UTI,VERTIGO,INABILITY TO WALK Current Active Problems Dizziness (Acute) Inability to walk (Acute) UTI (urinary tract infection) (Acute) Vertigo (Acute) Condition: Stable - Instructions Diet, Activity, Other Instructions: You were recently in the hospital for dizziness and an infection in your urinary tract. You may resume activity as tolerated. Please take the following antibiotic: -Levaquin 750 mg (1 tablet) once a day by mouth for the next 3 days (starting tomorrow) We also want you to take 81mg aspirin (Baby aspirin) daily. You may resume your other home medications. Please see your primary care physician and a neurologist, Dr. Lopez, in 1 week. If you develop chest pain, shortness of breath, or any new symptoms, please go to the hospital. We hope you feel better soon. Referrals: Javier Lipscomb MD [Non Staff, Medical] - Liu Kelly MD [Staff Physician] - Disposition: HOME - Home Medications Comprehensive Discharge Medication List: Ambulatory Orders Atorvastatin Ca [Lipitor] 40 mg PO HS 07/08/17 Losartan Potassium [Cozaar -] 50 mg PO DAILY 07/08/17 Metoprolol Succinate [Toprol Xl] 50 mg PO DAILY 07/08/17 Omeprazole 40 mg PO ASDIR 07/08/17 Prednisone [Deltasone -] 1 mg PO DAILY 07/08/17 Risedronate Sodium [Actonel (Monthly)] 150 mg PO Q30D 07/08/17 Aspirin [ASA -] 81 mg PO DAILY #30 tab.chew 07/09/17 Levofloxacin [Levaquin] 750 mg PO DAILY #3 tab 07/09/17 Meclizine HCl [Antivert -] 25 mg PO TID PRN #30 tablet 07/09/17 This patient is new to me today: No Emergency Visit: No Critical Care patient: No - Discharge Referral Referred to [facility] Med P.C.: No
== END 2017-07-09 18:34 | disposition home or self-care (01) | DRG 149 ==
LOC: JER 07:06 → JERBED 13:53 → J5S 15:30 → OBSVTOIN 15:45 → J4W 17:56
PROVIDERS: ADMIT Internal Medicine; ATTEND Internal Medicine
DX: H81.10 Benign paroxysmal vertigo, unspecified ear (principal); N39.0 Urinary tract infection, site not specified; N17.9 Acute kidney failure, unspecified; I10 Essential (primary) hypertension; E78.5 Hyperlipidemia, unspecified; R73.03 Prediabetes; I25.10 Atherosclerotic heart disease of native coronary artery without angina pectoris; Z95.5 Presence of coronary angioplasty implant and graft; M54.89 Other dorsalgia; K63.5 Polyp of colon; E86.0 Dehydration; I65.21 Occlusion and stenosis of right carotid artery
CPT/HCPCS: 36415; 70450-TC; 70544-TC; 70547-TC; 70551-TC; 71010-TC; 80048; 80053; 80061; 81003; 81015; 83036; 83721; 84484; 85025; 85027; 85610; 87086; 93005; 93010; 93880-TC; 97116-GP; 97161-GP; 99285-25; G0378; J1644